=== PATIENT | female | born 1990 | race Hispanic/Latino ===

== ENCOUNTER 2019-06-16 05:29 | Inpatient (IN) | payer MEDICAID, OTHER, SELFPAY ==
[2019-06-16] MEDS ORDERED: Ondansetron PF 4 MG/2 ML Vial IVP PRN ×2 (06:06→08:44)
[2019-06-16] MEDS ORDERED: hydrALAZINE 20 MG/ML VIAL SLOW IVP PRN ×2 (06:06→09:49)
[2019-06-16] MEDS ORDERED: Promethazine HCl 25 MG/ML VIAL IM PRN ×3 (06:06→08:44)
[2019-06-16] MEDS ORDERED: CEFAZOLIN 2 GM in Premix Bag 1 BAG IVPB SCH (06:06)
[2019-06-16] MEDS ORDERED: Bicitra 30 ML UDCUP PO SCH (06:06)
[2019-06-16 06:14] VITALS: BMI 37.9
[2019-06-16] MEDS: Lactated Ringer's 1,000 ML IV SCH ×3 (06:40→20:00)
[2019-06-16 06:54] LABS: Hemoglobin 9.3 g/dL (12.0-16.0); Mean Corpuscular HGB CONC 31.7 g/dL (32.0-36.0); Mean Corpuscular Hemoglobin 23.2 pg (27.0-31.0); Mean Corpuscular Volume 73.4 fL (78.0-98.0); Mean Platelet Volume 11.7 fL (7.4-10.4); Platelet Count 163 thou/uL (130-400); Red Blood Cell (RBC) Count 4.01 mill/uL (4.20-5.40); White Blood Cell (WBC) Count 8.7 thou/uL (4.8-10.8)
[2019-06-16 07:29] LABS: HBSAg Index 0.17 S/CO (0-0.99); Hep B Surf Ag Non-Reactive S/CO (NonReactive); Syphilis Antibody Nonreactive (Nonreactive); Syphilis Antibody Index 0.03 S/CO (<1.00 Non-Reactive)
[2019-06-16] MEDS ORDERED: MORPHINE 5 MG/10 ML PF VIAL ONE (07:37)
[2019-06-16] MEDS ORDERED: Oxytocin 10 UNITS/ML VIAL ONE ×3 (07:38→08:20)
[2019-06-16] MEDS ORDERED: Ondansetron PF 4 MG/2 ML Vial ONE (07:38)
[2019-06-16] MEDS ORDERED: ePHEDrine/0.9% NaCl/PF SYRINGE 50 mg/10 ml ONE (07:38)
--- NOTE | 2019-06-16 07:44 | PDOC.LDHP ---
Labor and Delivery H&P Chief complaint: scheduled section HPI: 29 y/o LAF at 38 weeks with dichorionic/diamnionic twins.. Twin A remains breech. Serial interval growth u/s normal. Currently, fetuses are active. No labor. Current gestational age (weeks): 38 Dating criteria: first trimester ultrasound Grav: 2 Para: 1 Current complications: di/di twins Abnormal US findings: No Current medications: pre-beckie vitamins, iron Previous surgical history: none Allergies/Adverse Reactions: Allergies Allergy/AdvReac Type Severity Reaction Status Date / Time No Known Allergies Allergy Verified 10/17/15 06:08 - Physical Exam FHT: category 1 - OB Labs Blood type: A RH: positive Antibody Screen: negative HIV: negative RPR: negative HEPSAg: negative 1 hour GCT: negative GBS: negative Urine drug screen: negative Rubella: immune - Plan Plan: admit to L&D, to OR for section (Primary delivery for breech/transverse twins.)
[2019-06-16] MEDS ORDERED: Ondansetron HCl/PF 4 MG/2 ML Vial IVP PRN (08:43)
[2019-06-16] MEDS ORDERED: Promethazine HCl 25 MG/ML VIAL SLOW IVP PRN (08:43)
[2019-06-16] MEDS ORDERED: Naloxone HCl 0.4 mg/ml Vial IV PRN (08:44)
[2019-06-16] MEDS ORDERED: diphenhydrAMINE 50 MG/ML VIAL IVP PRN (08:44)
[2019-06-16] MEDS ORDERED: Naloxone HCl 0.4 mg/ml Vial IVP PRN ×2 (08:44)
[2019-06-16] MEDS ORDERED: Promethazine HCl 25 MG SUPP PR PRN (08:44)
[2019-06-16] MEDS ORDERED: Communication Order-Pharmacy FS SCH (08:45)
[2019-06-16] MEDS ORDERED: Simethicone Chewable 80 MG TAB PO PRN (09:49)
[2019-06-16] MEDS ORDERED: Misoprostol 200 MCG TAB PR PRN (09:49)
[2019-06-16] MEDS ORDERED: Acetaminophen 325 MG TAB PO PRN (09:49)
[2019-06-16] MEDS ORDERED: diphenhydrAMINE 25 MG CAP PO PRN (09:49)
[2019-06-16] MEDS ORDERED: NS / Oxytocin 40 units/1000ml 1,000 ML IV SCH (09:49)
[2019-06-16] MEDS: Ketorolac Tromethamine 30 MG/ML VIAL IVP PRN ×2 (11:13→23:31)
--- NOTE | 2019-06-16 14:58 | OP ---
DATE OF PROCEDURE: 06/16/2019 PREOPERATIVE DIAGNOSES: 1. A 29-year-old female, G2, P1, at 38 weeks with dichorionic diamniotic twin gestation. 2. Breech and transverse presentation. POSTOPERATIVE DIAGNOSES: 1. A 29-year-old female, G2, P1, at 38 weeks with dichorionic diamniotic twin gestation. 2. Breech and transverse presentation. PROCEDURES PERFORMED: Primary low transverse section without extension. GARMENT FOLDER SURGEON: Hola Traore DO, MS ANESTHESIA: Spinal block by Dr. Checo Hunter. QBL: 875 mL. COMPLICATIONS: None. COUNTS: Correct x2. ANTIBIOTICS: 2 g Ancef on-call to OR. FINDINGS: 1. Twin A, male, christ breech presentation, clear amniotic fluid. Apgars 8 and 9. weight 7 pounds 1 ounce. 2. Twin B, transverse presentation delivered footling breech, Apgars 8 and 9. weight 6 pounds 4 ounces. Clear amniotic fluid noted. 3. Normal-appearing uterus, fallopian tubes, and ovaries. 4. Clear urine present in Falk catheter postprocedure. DISPOSITION: Recovery room in stable. DESCRIPTION OF PROCEDURE: The patient previously received informed consent in regard to surgery. She was taken back to the operating room where she received a spinal block without complications. She was placed in supine position, prepped and draped in usual sterile fashion. SCDs and Falk catheter in place at this time. A Pfannenstiel incision was made in the lower abdomen. This was carried down the fascia. Fascia was nicked in midline. Fascial incision was extended bilaterally using curved Lerma scissors. The rectus fascia was then dissected superiorly and inferiorly off the rectus muscle bellies. The rectus muscle bellies were divided in the midline. The peritoneal cavity was entered. The peritoneal incision was extended. Robin O retractor was placed. A 2-cm hysterotomy incision was made above the vesicouterine peritoneum. This was extended via finger fractionation. Twin A's amniotic bag was ruptured. Clear fluid noted. The buttocks of twin A were grasped and delivered atraumatically through the hysterotomy site. Each leg was then atraumatically delivered. A moist lap sponge was then placed around the buttocks and torso, and a corkscrewing technique was utilized to deliver both arms, and my hospital medical assistant kept external flexion of the head, but easy delivery of the twin A's head. Mouth and nares were bulb suctioned on the abdomen. The cord was doubly clamped and cut and handed to the Pediatric Team in attendance. Then, we proceeded to deliver twin B. On inspection of hysterotomy incision, one foot of twin B was noted, and it was grasped as her amniotic bag was ruptured for clear fluid. The other foot was grasped, and this was brought through the hysterotomy incision. Again, the corkscrewing technique was utilized of the torso with easily delivering the arms and the external pressure keeping the head flexed with easy delivery of the head. The mouth and nares again were bulb suctioned on the abdomen. The cord was doubly clamped and cut and handed to the Pediatric Team in attendance. Cord blood samples were obtained. A marker for twin A's umbilical cord was placed with a hemostat. Placentas were then massaged and manually delivered. They were both in separate sacs and chorions noted. The uterus was externalized and curetted of any remaining placental fragments with a dry laparotomy sponge. The uterus then was placed back in the abdomen. The hysterotomy incision was then inspected, and no extensions were noted. The uterus was closed at the hysterotomy site with a running locking #1 Monocryl suture. Additional [id number] stitch in the left corner suture line was placed for hemostasis. The pelvis was irrigated and suctioned. The Robin O retractor was removed. Again, hysterotomy incision was inspected. Hemostasis was confirmed. The rectus muscle bellies were then inspected and noted to be hemostatic prior to fascial closure. The fascia was closed with 0 PDS suture x2 in a running continuous fashion. Subcutaneous tissue was irrigated and noted to be hemostatic prior to skin approximation with mandy. The surgery was terminated, and no anesthetic or surgical complications occurred. Job ID: [id number]
[2019-06-16] MEDS ORDERED: Adacel (T-DAP) 0.5 ML SYRINGE IM ONE (17:00)
[2019-06-17] MEDS: Docusate Calcium (SURFAK) 240 MG CAP PO SCH ×3 (01:20→20:41)
[2019-06-17 07:37] LABS: Hemoglobin 6.9 g/dL (12.0-16.0); Mean Corpuscular HGB CONC 30.9 g/dL (32.0-36.0); Mean Corpuscular Hemoglobin 23.3 pg (27.0-31.0); Mean Corpuscular Volume 75.3 fL (78.0-98.0); Mean Platelet Volume 11.2 fL (7.4-10.4); Platelet Count 136 thou/uL (130-400); RBC Distribution Width 18.3 % (11.5-14.5); Red Blood Cell (RBC) Count 2.97 mill/uL (4.20-5.40); White Blood Cell (WBC) Count 12.1 thou/uL (4.8-10.8)
[2019-06-17] MEDS ORDERED: Sodium Chloride 0.9% 10 ML ONE (07:55)
[2019-06-17] MEDS: Ketorolac Tromethamine 30 MG/ML VIAL IVP PRN (08:01)
--- NOTE | 2019-06-17 08:20 | PDOC.PP ---
Post Progress Note Post Day #: 1 PO intake tolerated: yes Flatus: yes Ambulation: yes Vital Signs (12 hours) Temp Pulse Resp BP Pulse Ox 06/17/19 04:21 98.4 F 85 18 114/77 06/16/19 23:25 99.5 F 88 18 128/86 97 Weight Weight 214 lb Result Diagrams: 06/17/19 05:29 Additional Labs: Post Labs Blood Type A POSITIVE 06/16/19 07:02 Hep Bs Antigen Non-Reactive S/CO (NonReactive) 06/16/19 06:39 - Assessment/Plan Post op day 1 from repeat c/s for twins. Asymptomatic blood loss anemia.
[2019-06-17] MEDS: Prenatal Vitamin 1 TAB PO SCH (09:30)
[2019-06-17] MEDS: Iron Polysaccharides Complex 150 MG CAP PO SCH (09:30)
[2019-06-17] MEDS: HYDROcodone/Acetaminophen 5/325 mg Tablet PO PRN ×2 (10:16→15:41)
[2019-06-17] MEDS: Ibuprofen 800 MG TAB PO SCH ×2 (14:11→20:41)
[2019-06-18] MEDS: HYDROcodone/Acetaminophen 5/325 mg Tablet PO PRN ×3 (02:06→19:10)
[2019-06-18] MEDS: Ibuprofen 800 MG TAB PO SCH ×3 (06:09→22:16)
--- NOTE | 2019-06-18 07:38 | PDOC.PP ---
Post Progress Note Post Day #: 2 PO intake tolerated: yes Flatus: yes Ambulation: yes Vital Signs (12 hours) Temp Pulse Resp BP Pulse Ox 06/18/19 04:40 98.3 F 83 17 142/82 H 06/18/19 00:00 98.3 F 86 17 141/90 H 06/17/19 20:00 99 Weight Weight 214 lb Result Diagrams: 06/17/19 05:29 Additional Labs: Post Labs Blood Type A POSITIVE 06/16/19 07:02 Hep Bs Antigen Non-Reactive S/CO (NonReactive) 06/16/19 06:39 - Assessment/Plan POST op day 2 from primary c/s for twins. Progressing well. D/c in AM...Iron for anemia.
[2019-06-18] MEDS: Prenatal Vitamin 1 TAB PO SCH (07:57)
[2019-06-18] MEDS: Docusate Calcium (SURFAK) 240 MG CAP PO SCH ×2 (07:57→22:16)
[2019-06-19] MEDS: HYDROcodone/Acetaminophen 5/325 mg Tablet PO PRN ×2 (02:30→12:47)
[2019-06-19] MEDS: Ibuprofen 800 MG TAB PO SCH ×2 (05:44→12:50)
--- NOTE | 2019-06-19 07:53 | PDOC.PP ---
Post Progress Note Post Day #: 3 PO intake tolerated: yes Flatus: yes Ambulation: yes Weight Weight 214 lb Result Diagrams: 06/17/19 05:29 Additional Labs: Post Labs Blood Type A POSITIVE 06/16/19 07:02 Hep Bs Antigen Non-Reactive S/CO (NonReactive) 06/16/19 06:39 - Assessment/Plan Post op day 3.,primary c/s .doing well. d/c home. f/u post op day 7 and 6 weeks.
[2019-06-19 08:36] VITALS: TEMP 97.9
[2019-06-19] MEDS: Docusate Calcium (SURFAK) 240 MG CAP PO SCH (08:43)
[2019-06-19] MEDS: Prenatal Vitamin 1 TAB PO SCH (08:43)
[2019-06-19] MEDS: Iron Polysaccharides Complex 150 MG CAP PO SCH (08:43)
[2019-06-19 09:12] VITALS: BP 133/74
== END 2019-06-19 12:57 | disposition home or self-care (01) | DRG 787 ==
LOC: L&D/OP 05:29 → L&D 05:29 → L&D/OP 05:37 → L&D 08:14 → 3SW 11:10
PROVIDERS: ADMIT Obstetrics & Gynecology; ATTEND Obstetrics & Gynecology
PROC: 10D00Z1 Extraction of Products of Conception, Low, Open Approach (ICD-10-PCS; principal; 2019-06-16)
DX: O30.043 Twin pregnancy, dichorionic/diamniotic, third trimester (principal); D62 Acute posthemorrhagic anemia; Z3A.38 38 weeks gestation of pregnancy; Z37.2 Twins, both liveborn; O32.1XX0 Maternal care for breech presentation, not applicable or unspecified; O90.81 Anemia of the puerperium
CPT/HCPCS: 36415; 51702; 85027; 86780; 86850; 86900; 86901; 87340; J0690; J1885; J2274; J2405; J2590